=== PATIENT | female | born 1955 | race Caucasian/White ===

== ENCOUNTER → 2017-05-31 13:24 | Outpatient (CLI) | payer OTHER, SELFPAY ==
[2017-06-08 14:19] LABS: HPV HC, High Risk Positive (Negative)
[2017-06-08 14:20] LABS: HPV Reflexed? YES, CHARGE PATIENT
== END ==
PROVIDERS: Visit Provider Obstetrics & Gynecology
DX: R87.610 Atypical squamous cells of undetermined significance on cytologic smear of cervix (ASC-US) (principal)
CPT/HCPCS: 87624; 88175; G0145

== ENCOUNTER → 2017-09-21 12:05 | Outpatient (CLI) | payer OTHER, SELFPAY ==
[2017-09-28 09:56] LABS: HPV Reflexed? NOT INDICATED
== END ==
PROVIDERS: Family Provider Family Medicine; PCP Family Medicine; Visit Provider Obstetrics & Gynecology
DX: Z12.4 Encounter for screening for malignant neoplasm of cervix (principal)
CPT/HCPCS: 88175; G0145

== ENCOUNTER → 2020-06-15 13:33 | Outpatient (CLI) | payer BC, SELFPAY ==
[2020-06-15 16:42] LABS: HIV - WCH Non-Reactive (Nonreactive); Hepatitis B Surface Antibody Reactive; Hepatitis C Antibody Non-Reactive (Nonreactive); Syphilis Antibodies Non-reactive
[2020-06-18 03:07] LABS: Chlamydia By Nucleic Acid AMP Negative (Negative)
[2020-06-18 09:12] LABS: Gonococcus By Nucleic Acid AMP Negative (Negative)
[2020-06-19 21:05] LABS: HPV APTIMA, High Risk Negative (Negative)
== END ==
LOC: WOBLAB 13:37
PROVIDERS: PCP Family Medicine; Visit Provider Obstetrics & Gynecology
DX: Z11.3 Encounter for screening for infections with a predominantly sexual mode of transmission (principal); Z12.4 Encounter for screening for malignant neoplasm of cervix
CPT/HCPCS: 36415; 86703; 86706; 86780; 86803; 87491; 87591; 87624; 88175; G0145

== ENCOUNTER → 2020-06-29 16:06 | Outpatient (CLI) | payer BC, SELFPAY ==
[2016-10-28 06:55] VITALS: BMI 32.1
--- NOTE | 2020-06-29 | EMB_PTH ---
PATIENT: SUHA WATERS LOC: [facility] U#:[id number] AGE/SX: 69/F ROOM: RE06/29/[address]: Dr. Esteban Telles MD : 1955 BED: DIS: SPEC #: [id number] RECD: 06/29/20 16:48 STATUS: DANYA REMaryann #: [id number] HARPAL: 06/29/20 00:[address]: Esteban Telles DEPT: SURGICAL PATHOLOGY RECD BY: Kalin Mcdonald ENTERED: 06/30/20 07:27 SP TYPE: ENDOM BX/C CINDI DR: Dr. Alen Dill MD Tissues: Endometrium, NOS Procedures: Surgery Specimen Level IV HEADER OPERATION: Endometrial biopsy PRE-OP DIAGNOSIS: Abnormal uterine bleeding TISSUE SUBMITTED: Endometrial biopsy MICROSCOPIC DIAGNOSIS Endometrial biopsy: Simple cystic endometrial hyperplasia without atypia. SJ:greg 07/01/2020 MICROSCOPIC DESCRIPTION Slides are reviewed. GROSS DESCRIPTION Received in fixative is one container labeled with the patient's name and designated EM biopsy. The specimen consists of multiple irregular fragments of mcneill-pink soft tissue mixed with mucoid tissue that in aggregate measure 1.5 x 1 x 0.2 cm. The specimen is totally submitted in one cassette. / GEOVANNA:greg 06/30/20 TC:5 CPT: 68822
== END ==
PROVIDERS: PCP Family Medicine; Visit Provider Obstetrics & Gynecology
DX: N93.9 Abnormal uterine and vaginal bleeding, unspecified (principal)
CPT/HCPCS: 88305

== ENCOUNTER → 2020-12-22 14:10 | Outpatient (CLI) | payer BC, SELFPAY ==
--- NOTE | 2020-12-22 | EMB_PTH ---
PATIENT: USHA WATERS LOC: [facility] U#:[id number] AGE/SX: 69/F ROOM: RE12/22/[address]: Dr. Govind Telles MD : 1955 BED: DIS: SPEC #: [id number] RECD: 12/22/20 14:04 STATUS: DANYA REMaryann #: [id number] HARPAL: 12/22/20 00:[address]: Govind Telles DEPT: SURGICAL PATHOLOGY RECD BY: Shirin Parra ENTERED: 12/23/20 08:20 SP TYPE: ENDOM BX/C CINDI DR: Dr. Alen Dill MD Tissues: Endometrium, NOS Procedures: Surgery Specimen Level IV HEADER OPERATION: Endometrial biopsy PRE-OP DIAGNOSIS: Prior biopsy 07/01, simple cystic hyperplasia TISSUE SUBMITTED: Endometrial biopsy MICROSCOPIC DIAGNOSIS Endometrial biopsy: Consistent with exogenous hormone effect with focal cystic changes. Negative for hyperplasia. SJ:greg 12/24/2020 COMMENT Please make reference to previous specimen ([id number]) endometrial biopsy with diagnosis of ?simple cystic endometrial hyperplasia without atypia.? MICROSCOPIC DESCRIPTION Slides are reviewed. GROSS DESCRIPTION Received in fixative is one container labeled with the patient's name and designated EM biopsy. The specimen consists of multiple fragments of hemorrhagic soft tissue that in aggregate measure 2 x 1 x 0.2 cm. The specimen is totally submitted in one cassette. / SJ:greg 12/23/20 TC:5 CPT: 26579
== END ==
LOC: LABSPEC 14:14
PROVIDERS: PCP Family Medicine; Referring Provider Family Medicine; Visit Provider Family Medicine
DX: N85.01 Benign endometrial hyperplasia (principal)
CPT/HCPCS: 88305

== ENCOUNTER → 2021-07-05 | Outpatient (CLI) | payer BC, SELFPAY ==
--- NOTE | 2021-07-05 14:50 | RAD_ITS ---
STUDY: X-RAY CHEST REASON FOR EXAM: Female, 66 years old. COVID TECHNIQUE: Single AP portable view of the chest. COMPARISON: None. 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 There is lucency within the left mid upper lung field suggestive of emphysema. Otherwise the lungs are clear and expanded. There is no demonstrated pleural abnormality. Normal size heart. Normal mediastinum and jenny. Normal visualized pulmonary arteries. Normal visualized aortic arch and descending thoracic aorta. Normal visualized thoracic spine. Normal visualized ribs, clavicles, and shoulders. There is no demonstrated abnormality of the visualized soft tissue structures of the upper abdomen. RAD/Chest PA and Lateral IMPRESSION: Suggestion of underlying left-sided emphysema. Otherwise no acute cardiopulmonary disease. Electronically Signed: Leslie Farrell MD at 2:31 EDT ,
== END | disposition home or self-care (01) ==
PROVIDERS: PCP Family Medicine; Referring Provider Internal Medicine Pulmonary Disease; Visit Provider Internal Medicine Pulmonary Disease
DX: U07.1 COVID-19 (principal)
CPT/HCPCS: 71046

== ENCOUNTER → 2021-10-27 | Outpatient (CLI) | payer BC, SELFPAY ==
--- NOTE | 2021-10-27 12:58 | CT_ITS ---
INDICATION: COVID EXAMINATION: CT CHEST WITHOUT CONTRAST - CT Chest W/O Contrast Injection TECHNIQUE: Helically acquired images were obtained of the chest. A radiation dose optimization technique was used for this scan. IV Contrast dosage and agent: None. COMPARISON: 07/05/2021. FINDINGS: LUNGS, PLEURA AND LARGE AIRWAYS: No masses, consolidation, or edema. No pleural effusion or thickening. No pneumothorax. THYROID: No thyroid lesions. HEART AND PERICARDIUM: Heart size is normal. No pericardial effusion. VESSELS: Thoracic aorta is not dilated. MEDIASTINUM AND MIGUELINA: No mediastinal or hilar adenopathy. Esophagus is unremarkable. No hiatal hernia. UPPER ABDOMEN: No acute pathology. BONES: Degenerative bone changes. No suspicious lytic or blastic abnormality. CT/Chest without Contrast IMPRESSION: Unremarkable CT chest without contrast. Electronically Signed: Yung Carrizales MD at 16:38 EDT ,
== END | disposition home or self-care (01) ==
LOC: CT 12:56
PROVIDERS: PCP Family Medicine; Visit Provider Internal Medicine Pulmonary Disease
DX: U07.1 COVID-19 (principal)
CPT/HCPCS: 71250

== ENCOUNTER → 2021-12-24 | Outpatient (CLI) | payer BC, SELFPAY ==
[2021-12-24 16:07] LABS: HIV - WCH Non-Reactive (Nonreactive); Hepatitis B Surface Antibody Reactive; Syphilis Antibodies Non-reactive
[2021-12-26 10:07] LABS: HEPATITIS B SURFACE AG Negative (Negative); Hep C Antibodies <0.1 s/co ratio (0.0-0.9); Hepatitis A IgM Antibody Negative (Negative); Hepatitis B Core AB IgM Negative (Negative)
[2021-12-26 10:36] LABS: Hepatitis A AB, Total Negative (Negative)
[2021-12-27 21:07] LABS: Chlamydia By Nucleic Acid AMP Negative (Negative)
[2021-12-28 12:42] LABS: Gonococcus By Nucleic Acid AMP Negative (Negative)
[2022-01-02 15:43] LABS: HPV APTIMA, High Risk Negative (Negative)
== END | disposition home or self-care (01) ==
LOC: WOBLAB 14:34
PROVIDERS: PCP Family Medicine; Visit Provider Obstetrics & Gynecology
DX: Z12.4 Encounter for screening for malignant neoplasm of cervix (principal); Z11.3 Encounter for screening for infections with a predominantly sexual mode of transmission
CPT/HCPCS: 36415; 80074; 86703; 86706; 86708; 86780; 87491; 87591; 87624; 88175; G0145